=== PATIENT | female | born 1950 | race Caucasian/White ===

== ENCOUNTER → 2018-04-17 | Outpatient (CLI) | payer OTHER | END | disposition home or self-care (01) | LOC: SPEC 04-16 10:52 | DX: Z43.4 Encounter for attention to other artificial openings of digestive tract (principal) ==

== ENCOUNTER 2018-04-26 18:52 | Inpatient (IN) | payer OTHER ==
[~2018-04-26] VITALS: Ht 160 cm; Wt 59.1 kg
[2018-04-26] VITALS (8 sets, daily range): BP systolic 87–153; BP diastolic 50–80
--- NOTE | ~2018-04-26 | HC ---
[facility] [place] [address] CONSULTATION Name: LISA MAYFIELD Room #: 364-P ADM IN M.R.#: [id number] Admission: 04/26/18 Attend Phys: Selene Fischer Discharge: Date of : 54 Report #: [id number] THIS REPORT FOR: //name// CC: Usman Aponte DATE OF SERVICE: 04/27/2018 CONSULTATION: Infectious Diseases. HISTORY OF PRESENT ILLNESS: Ms Mayfield is a 67-year-old white female who was admitted to the hospital from [facility] on 04/26/2018 because of elevated temperature and deteriorating laboratory studies. The patient has been treated for a severe case of necrotizing pancreatitis with pseudocyst. She presented to [facility] about 4-6 weeks ago. She was treated medically. At [facility], she was on meropenem and vancomycin. After a long course of therapy, patient was improving and the antibiotics were discontinued. After about 2 or 3 days, the patient began to complain of more pain. She was noted to have elevated temperature. Laboratory studies showed elevated creatinine, falling hemoglobin and falling oxygen saturations. In this setting, the patient was returned to acute care at [facility]. The patient has a history of COPD and hypertension. Her surgical history includes hysterectomy and partial colectomy for what turned out to be benign disease, I believe. The patient has no history of pancreatitis prior to the above noted events. She has no history of alcohol. She has no history of gallstones. She has no history of trauma to the pancreas. MEDICATION RECONCILIATION: Current medications include pantoprazole 40 mg daily, Lactobacillus 1 cap daily, diltiazem long acting 180 mg daily, guaifenesin 600 mg b.i.d., trazodone 50 mg at bedtime, metoprolol 100 mg b.i.d., enoxaparin 30 mg subQ at bedtime, metoclopramide 5 mg q. 8h. scheduled, lactulose 20 g q. 6h. scheduled, albuterol 1.25 mg aerosol q. 4h., ondansetron 4 mg p.o. p.r.n., alprazolam 0.25 mg t.i.d., Tylenol 650 mg q. 6h. p.r.n., oxycodone 10 mg q. 4h. p.r.n., meropenem 500 mg q. 8h., DuoNeb inhaler 3 mL q. 4h., hydrocodone 1 tablet q. 4h. p.r.n., onetime dose of vancomycin. FAMILY HISTORY: Noncontributory. SOCIAL HISTORY: The patient is . She was living alone independently prior to the above noted events. She does have a history of tobacco, but quit smoking when she was admitted to the hospital and plans to remain abstinent from cigarettes. No history of alcohol nor drugs. REVIEW OF SYSTEMS: The patient is back in the hospital, n.p.o. with an NG tube, [address] [address] CONSULTATION Name: LISA MAYFIELD Room #: 364-P ADM IN M.R.#: [id number] Admission: 04/26/18 Attend Phys: Selene Fischer Discharge: Date of : 54 Report #: [id number] on antibiotics for 24 hours and says she feels pretty much back to what was her baseline at [facility]. She is not aware of fevers, chills or sweats. She is not complaining of any headache, sinus congestion, sore throat, trouble swallowing. Her mental status, which had deteriorated, was back to baseline. The patient denies cough, chest pain, shortness of breath. She does note nausea and diffuse upper abdominal pain. This was relieved with NG tube placement. The patient denies diarrhea or constipation. She denies urinary complaints. She has no pain in the extremities. PHYSICAL EXAMINATION: GENERAL: The patient appears comfortable, alert, oriented, not in any distress. VITAL SIGNS: Normal. The patient is afebrile. SKIN: Shows no rash, lesions, or exanthem. ENT: Negative. HEART: Sounds normal. LUNGS: Clear. ABDOMEN: Belly is soft, mild to moderately tender. Bowel sounds present. EXTREMITIES: Unremarkable. The PICC line appears unremarkable. LABORATORY DATA: White count is 12.7, hemoglobin is 10, hematocrit 30%, platelet 488,000. Electrolytes normal. BUN 41, creatinine 2.5. Chest x-ray: Negative. Pulmonary perfusion ventilation scan was low probability for pulmonary embolus. IMPRESSION: Necrotizing pancreatitis with pseudocyst, deteriorating when antibiotics were stopped. PLAN: We should check blood and urine for any sign of infection. The patient could have a PICC line infection. Most likely, this is a continuation of her pancreatitis disease. With the elevated creatinine, we will hold off on the vancomycin, but continue the meropenem. The patient seemed to have done better in the 24 hours after returning to the hospital on IV antibiotics. I appreciate the opportunity of input in the care of the patient. Dr. Ahn will return on Sunday. I believe he knows the patient from working with her at [facility] and can review the records there and continue appropriate therapy. Thank you for this consultation. <ELECTRONICALLY SIGNED> By: Armando Liu MD 04/28/18 2057 0905 1209 Armando Liu MD /nt
--- NOTE | ~2018-04-26 | HC ---
[facility] [place] [address] CONSULTATION Name: LISA ACUÑA Room #: 364-P [facility] IN M.R.#: [id number] Admission: 04/26/18 Attend Phys: Selene Fischer Discharge: 04/30/18 Date of : 54 Report #: [id number] THIS REPORT FOR: //name// CC: Usman Aponte DATE OF SERVICE: 04/29/2018 REASON FOR CONSULTATION: Pancreatitis with pseudocyst, altered mental status, hypoxia, acute renal insufficiency. HISTORY OF PRESENT ILLNESS: The patient is a 67-year-old who was transferred here from [facility] for evaluation. She apparently became less responsive. The patient has been ill for about a month. She was hospitalized at [facility] with severe pancreatitis, possible necrotizing pancreatitis. The exact source of her pancreatitis is not known, but she does not drink. Her sister has had her gallbladder removed. The patient came because of more abdominal pain located in the left upper quadrant area. The patient had altered mental status. She is brought back for further evaluation. On admission, her lipase was elevated at 1900. LABORATORY DATA: Her white count was 12,700. Her amylase was also elevated two days after admission. Her lipase did come down from 1900 to 1647. The patient had a CAT scan done today. The prior CT scan showed about a 5-cm size pseudocyst in the lateral portion near the tail. The gallbladder was also distended on her prior CT scan. Her most recent CT scan done yesterday, the fluid collection actually looks smaller down to about 2.5 cm. The gallbladder is no longer distended. There is a fair amount of fluid buildup on the left upper quadrant area. The CT was not done with contrast because of her elevated creatinine. So, the two CTs were difficult to compare. Her prior CT was done 04/17 with IV contrast. The patient does have some renal insufficiency. She says mostly her pain is on the left side. She is tolerating the Dobhoff well and she does not mind it. PHYSICAL EXAMINATION: GENERAL: She is alert and oriented now. She is a good historian. She is not in acute distress. She does have tenderness in the left abdomen with fullness. The lower abdomen is nontender. The right abdomen is mildly tender. IMPRESSION: The patient is a 67-year-old with pancreatitis. The pseudocyst actually looks smaller. I do not know if it ruptured or is it just absorbing on its own. There is significant inflammation and some free fluid in that area. Her lipase was elevated when she came in and it is trending downward. She may have had another activation of her pancreatitis. I did discuss with her possible placing a small jejunostomy tube, but she does not want anything [address] [address] CONSULTATION Name: LISA ACUÑA Room #: 364-P DIS IN M.R.#: [id number] Admission: 04/26/18 Attend Phys: Selene Fischer Discharge: 04/30/18 Date of : 54 Report #: [id number] permanent like that, she is comfortable with the nasojejunal feedings, which should be okay. I do not think that should stimulate the pancreas too much. At this point, I do not think she needs any surgical intervention. I do not think the pseudocyst needs to be drained since it is smaller. I do not see any significant collection that could be drained, but she does need to have repeat followup CT scans. Hopefully, her renal function will improve. By: [id number] [id number] Sonu Low MD /nt
--- NOTE | ~2018-04-26 | 2DMMODE ---
[place] [address] [employer] [place] [address] 2 D/M-MODE ECHOCARDIOGRAM Name: LISA ACUÑA Room #: 242-P ADM IN M.R.#: [id number] Admission: 04/26/18 Attend Phys: Usman Cevallos Discharge: Date of : 54 Date of Service: 04/27/18 1134 Report #: [id number] THIS REPORT FOR: //name// APPROVED REPORT Study performed: 04/27/2018 07:47:46 EXAM: Comprehensive 2D, Doppler, and color-flow Echocardiogram Patient Location: ICU Room #: 242 Status: on-call BSA: 1.61 HR: 115 bpm BP: 119/53 mmHg Rhythm: Tachycardia Other Information Study Quality: Adequate Technically limited study due to lung disease/patient did not tolerate exam well. Indications Hypoxemia. Hx: COPD 2D Dimensions RVDd: 30.38 mm LVEF(%): 58.92 (>50%) IVSd: 13.12 (7-11mm) LVOT Diam: 18.71 (18-24mm) LVDd: 42.78 mm PWd: 11.06 (7-11mm) LVDs: 29.54 (25-40mm) Aortic Root: 38.82 mm Davies's LVEF: 58.92 % Volumes Left Atrial Volume (Systole) Single Plane 4CH: 43.38 mL Single Plane 2CH: 55.26 mL Aortic Valve AoV Peak Brady.: 1.40 m/s AO Peak Gr.: 7.87 mmHg LVOT Max P.40 mmHg LVOT Max V: 1.05 m/s LOUIE Vmax: 2.05 cm2 Pulmonary Valve PV Peak Brady.: 1.55 m/s PV Peak Gr.: 9.60 mmHg [facility] [place] [address] [address] [place] [address] 2 D/M-MODE ECHOCARDIOGRAM Name: LISA ACUÑA LINDY Room #: [address] [place] [address] IN M.R.#: [id number] Admission: 04/26/18 Attend Phys: Usman Cevallos Discharge: Date of : 54 Date of Service: 04/27/18 1134 Report #: [id number] Tricuspid Valve RAP Estimate: 5.00 mmHg Left Ventricle The left ventricle is normal size. There is normal LV segmental wall motion. There is normal left ventricular wall thickness. Left ventricular systolic function is hyperdynamic. LVEF is 65-70%. This study is not technically sufficient to allow evaluation of the LV diastolic function. Right Ventricle The right ventricle is normal size. The right ventricular systolic function is normal. Atria The left atrium size is normal. The right atrium size is normal. Aortic Valve The aortic valve is sclerotic. No aortic regurgitation is present. There is no aortic valvular stenosis. Mitral Valve Mild mitral annular calcification. There is no mitral valve regurgitation noted. No evidence of mitral valve stenosis. Tricuspid Valve The tricuspid valve is normal in structure. There is no tricuspid valve regurgitation noted. Unable to assess PA pressure. Pulmonic Valve Pulmonic valve is not well visualized. Great Vessels Aortic root is mildly dilated. Ascending aorta is not well visualized. IVC is normal in size and collapses >50% with inspiration. Pericardium There is no pericardial effusion. Left pleural effusion noted. <Conclusion> Left ventricular systolic function is hyperdynamic. There is normal LV segmental wall motion. [facility] [address] [place] [address] 2 D/M-MODE ECHOCARDIOGRAM Name: LISA ACUÑA Room #: 242-P ADM IN M.R.#: [id number] Admission: 04/26/18 Attend Phys: Usman Cevallos Discharge: Date of : 54 Date of Service: 04/27/18 1134 Report #: [id number] LVEF is 65-70%. The aortic valve is sclerotic. No aortic regurgitation or stenosis Mild mitral annular calcification. No mitral valve regurgitation There is no pericardial effusion. <ELECTRONICALLY SIGNED> By: Parker Iniguez MD, [facility] 04/27/18 1134 1134 1134 Parker Iniguez MD, FACC /INF
--- NOTE | ~2018-04-26 | HC ---
[facility] [place] [address] CONSULTATION Name: LISA ACUÑA Room #: 364-P ADM IN M.R.#: [id number] Admission: 04/26/18 Attend Phys: Selene Fischer Discharge: Date of : 54 Report #: [id number] THIS REPORT FOR: //name// CC: Corbin Wagner MD REASON FOR CONSULTATION: The patient is a 67-year-old woman with increasing shortness of breath and history of necrotizing pancreatitis. HISTORY OF PRESENT ILLNESS: This 67-year-old woman reports she has no previous problems of pancreatic disease or biliary tract disease. She also reports she drinks alcohol very infrequently. She had a recent admission at [facility], I believe about March of this year at which time, she was found to have severe necrotizing pancreatitis. She subsequently developed pseudocyst and apparently had what was thought to be an infected pseudocyst. She was then taken to [facility] for rehabilitation. She also had a nasogastric tube placed for feedings. In addition, as an outpatient, she had a CT done 10 days ago and that study did reveal evidence of pancreatitis with numerous pseudocysts throughout the pancreas as well as a dominant extrahepatic pancreatic pseudocyst in left upper quadrant. There is also mild dilation in the intrahepatic and extrahepatic biliary tree without obvious filling defects. Largest pancreatic cyst in the tail measured 4.8 and the largest extrapancreatic pseudocyst measured 5.9. Obvious pancreatic necrosis was not seen. Portal vein was noted to be patent. The patient was transferred to [facility] due to hypoxia and confusion. She is currently in Intensive Care Unit and reports she is feeling much better today. A VQ scan done was low probability and chest x-ray showed cardiomegaly without evidence of heart failure. The patient also reports that after the placement of nasojejunal feeding tube, her abdominal pain did improve significantly. She has been able to take some clear liquids. LABORATORY STUDIES: Reveal a white count of 12.7, hemoglobin 10.2, platelet count of 422,000. Sodium 131, potassium 3.9, chloride 98, CO2 25, BUN of 41, creatinine of 2.5, AST 11, ALT of 10, alkaline phosphatase of 110. BNP of 1639. Albumin of 2.1 and lipase of 1952. PAST MEDICAL HISTORY: She has chronic obstructive pulmonary disease and was a former cigarette smoker, also has had chronic renal insufficiency. She has a left adrenal mass. PAST SURGICAL HISTORY: Previous hysterectomy, inguinal hernia repair what [facility] [address] [place] [address] CONSULTATION Name: LISA ACUÑA Room #: 364-P ADM IN M.R.#: [id number] Admission: 04/26/18 Attend Phys: Selene Fischer Discharge: Date of : 54 Report #: [id number] sounds like segmental colon resection for colonic polyps. ALLERGIES: MEPERIDINE. MEDICATIONS UPON TRANSFER: Include acetaminophen, albuterol nebulized, Xanax 0.25 mg 3 times daily, diltiazem 180 mg daily, Lovenox 30 mg subQ twice daily, Mucus Relief 600 mg twice daily, probiotic daily, lactulose 20 grams every 6 hours, meropenem 500 mg 3 times daily, metoclopramide 5 mg every 8 hours, metoprolol 100 mg twice daily, ondansetron 4 mg daily, OxyIR 10 mg every 4 hours as needed, pantoprazole 40 mg daily, trazodone 50 mg at bedtime. FAMILY HISTORY: No family history of pancreatic disease. SOCIAL HISTORY: She is a former cigarette smoker. She has never consumed much alcohol. REVIEW OF SYSTEMS: GENERAL: No change in weight, fever or chills. CENTRAL NERVOUS SYSTEM: No focal weakness, numbness, loss of consciousness, seizure or stroke. She was confused yesterday, is very much alert today. ENT: No change in vision or hearing or sores in the mouth. PULMONARY: Chronic obstructive pulmonary disease, former cigarette smoker. No history of pneumonia or tuberculosis. CARDIOVASCULAR: No chest pain, chest tightness or palpitation. GASTROINTESTINAL: No recent nausea, vomiting, hematemesis. She has had a colon surgery for multiple colon polyps. She said she has had at least [address] Ciro Denton. Last colonoscopy was about a year ago. GENITOURINARY: Left adrenal mass, chronic kidney disease. MUSCULOSKELETAL: No arthralgias or myalgias. SKIN: Without rash. PSYCHIATRIC: No depression, anxiety or bipolar illness. ENDOCRINE: No diabetes or thyroid problems. HEMATOLOGIC: No bleeding, bruising or malignancies. PHYSICAL EXAMINATION: GENERAL: Well-developed, well-nourished woman who is awake, alert and oriented, no acute distress. VITAL SIGNS: Blood pressure 139/69, pulse has been in the 90s, but this afternoon is 117. HEENT: Anicteric. Pupils equal and round. Oropharynx clear. NECK: Supple. CHEST: Clear. HEART: Regular rate and rhythm, normal S1, S2. ABDOMEN: There is some fullness in the upper abdomen. I do not appreciate distinct mass, but there is a definite fullness, which is indistinct. Bowel sounds are normal. There are no bruits. There is modest tenderness to [facility] [address] [place] [address] CONSULTATION Name: LISA ACUÑA Room #: 364-P ADM IN M.R.#: [id number] Admission: 04/26/18 Attend Phys: Selene Fischer Discharge: Date of : 54 Report #: [id number] palpation across the upper abdomen. No rebound or rigidity. RECTAL: Not done. EXTREMITIES: Without cyanosis, clubbing, edema. NEUROLOGIC: Oriented to person, place and time. Moves all 4 extremities well. ASSESSMENT: 1. Pancreatitis with history of necrotizing pancreatitis. 2. Pancreatic pseudocyst, multiple. 3. Abdominal pain. 4. Respiratory depression. 5. Altered mental status. COMMENT: Complicated medical history. All things considered, the patient is clinically improved today. I am not sure anything has changed in her abdomen. It is not clear why she had the respiratory issues and altered mental status. It is noted she is on multiple medications including narcotics and benzodiazepines, which may have been a factor. However, in the long-term, she has a large pseudocyst. She has multiple pseudocysts including large pseudocyst. The largest cyst may be amenable to endoscopic draining. She would need to be at another center for that procedure. However, I do not think there is an urgency to pursue at this point in time. RECOMMENDATIONS: 1. Agree with resuming tube feedings. 2. Monitor labs and lipase. 3. Pulmonary care per Dr. Aponte. 4. She will need a followup CT. Last one was about 10 days ago. She will need more CTs in the future questions whether to proceed now or wait. We will see how she does over the next 24 hours. 5. Continue antibiotics per Dr. Ahn. <ELECTRONICALLY SIGNED> By: Armando Hillman MD 04/29/18 1100 1303 1616 Armando Hillman MD /nt
--- NOTE | ~2018-04-26 | D ---
[facility] [place] [address] DISCHARGE SUMMARY Name: LISA ACUÑA Room #: 364-P [facility] IN M.R.#: [id number] Admission: 04/26/18 Attend Phys: Selene Fischer Discharge: 04/30/18 Date of : 54 Report #: [id number] THIS REPORT FOR: //name// CC: Usman Aponte FINAL DIAGNOSES: 1. Pancreatic pseudocyst. 2. Pancreatitis. 3. Hypoxia. HOSPITAL COURSE: The patient was admitted from LTAC for evaluation of her pancreatitis and to rule out sepsis. Her usual antibiotics were continued and was followed by the ID team. No new infections were identified and sepsis was ruled out. She was seen by the GI and Surgery services and at this point, they felt there was no intervention indicated nor surgery. CT revealed that the fluid collection and the pseudocyst was actually a little smaller, although there was a different technique. The recommendation is that she will need to follow up with her referring hospital for consideration of endoscopy treatment of the pseudocyst. She had no other interval complications. PHYSICAL EXAMINATION: GENERAL: On the day of discharge, she was awake and alert, sitting up in bed. VITAL SIGNS: Stable. LUNGS: Clear. HEART: Regular. ABDOMEN: Soft, but slightly distended, scattered bowel sounds. EXTREMITIES: No edema. DISPOSITION: To be transferred back to [facility], should continue clear liquid diet with continuous tube feeding. Current medications will continue including antibiotics, should be followed by Dr. Corbin Ahn. <ELECTRONICALLY SIGNED> By: Noah Galvin MD 05/01/18 1219 0958 1154 Noah Galvin MD /nt
--- NOTE | ~2018-04-26 | H ---
[facility] [place] [address] HISTORY AND PHYSICAL Name: LISA ACUÑA Room #: 242-P ADM IN M.R.#: [id number] Admission: 04/26/18 Attend Phys: Selene Fischer Discharge: Date of : 54 Report #: [id number] THIS REPORT FOR: //name// CC: Usman Aponte DATE OF SERVICE: 04/26/2018 CHIEF COMPLAINT: A 67-year-old female with pancreatitis. HISTORY OF PRESENT ILLNESS: This is a patient I have known now for the last month because she has been residing at the [facility] and had been doing much better overall, but had a diagnosis of pancreatitis that was not biliary or alcohol related and was significant necrotizing pancreatitis with subsequent formation of pseudocysts, and during her hospital stay, had some infection and we postulated that it was related to an infected pseudocyst. She finished the Merrem dosing and was much better; however, then began to have increasing sedation, hypoxemia, more abdominal pain, at which point we felt she needed further reevaluation of the pancreatitis and so, [facility] PAST MEDICAL HISTORY: Otherwise, unremarkable. She has COPD. She has mild renal insufficiency with a baseline creatinine of 1.3. She has a left adrenal mass. PAST SURGICAL HISTORY: She has had a previous hysterectomy. ALLERGIES: INCLUDE MEPERIDINE. MEDICATIONS: Well documented from the record. FAMILY HISTORY: Noncontributory. SOCIAL HISTORY: She has been at [facility] for the last 3-4 weeks. REVIEW OF SYSTEMS: Otherwise, negative. PHYSICAL EXAMINATION: GENERAL: Shows her to be in no distress at this time. She is awake, alert and oriented. She has a Dobbhoff tube in her right naris with O2 in place. CHEST: Clear with some scattered rhonchi. CARDIOVASCULAR: Shows a regular rate and rhythm without murmur. ABDOMEN: Tender in the mid epigastrium. Bowel sounds were present. EXTREMITIES: Showed no evidence of cyanosis, clubbing or edema and her PICC line was in the right upper arm and had a clean insertion site. [address] [address] HISTORY AND PHYSICAL Name: LISA ACUÑA Room #: 242-P ADM IN ..#: [id number] Admission: 04/26/18 Attend Phys: Selene Fischer Discharge: Date of : 54 Report #: [id number] NEUROLOGIC: Negative. LABORATORY PARAMETERS: Showed increasing creatinine now up to 2.5, and 2 days ago, it was 1.3. Her hemoglobin is 10 with 2 unit transfusion 2-3 days ago with a hemoglobin of 6. Chest x-ray shows left lower lobe atelectasis. ASSESSMENT: 1. This is a 67-year-old female with pancreatitis with pseudocyst formation and necrotizing in type, and I suspect further infectious complications. She also has atelectasis and could have a mild pneumonia as well. 2. Renal insufficiency, markedly increased. Hopefully, it will improve with fluid resuscitation. 3. Chronic obstructive pulmonary disease. 4. Hypertension. PLAN: IV Merrem. Await cultures. I think she probably needs total bowel rest and consider a surgically placed jejunostomy tube. By: 1019 1053 Usman Ahn MD /nt
--- NOTE | ~2018-04-26 | HC ---
[facility] [place] [address] CONSULTATION Name: LISA CAUÑA Room #: 364-P [facility] IN M.R.#: [id number] Admission: 04/26/18 Attend Phys: Selene Fischer Discharge: 04/30/18 Date of : 54 Report #: [id number] THIS REPORT FOR: //name// CC: Usman Aponte DATE OF SERVICE: 04/26/2018 REFERRING PROVIDER: Corbin Ahn MD REASON FOR CONSULTATION: Hypoxemia. CHIEF COMPLAINT: Altered mental status. HISTORY OF PRESENT ILLNESS: Our group was asked to see this patient in consultation while hospitalized at [facility]. I discussed with Dr. Maradiaga of the Emergency Department. Records that are available from [facility] long-term acute care facility reviewed. This is a 67-year-old woman with a past pulmonary history of COPD hospitalized in [facility] for about 1 month with a very severe case of pancreatitis. The exact details of that hospital stay are unclear, but had been on nasojejunal feedings and had been transferred to [facility] about one month ago and has had some difficulty with what appears to be a persistent left pleural effusion that is small to moderate in size, but today was found perhaps less responsive and hypoxemic, pO2 is 50 on several liters nasal cannula, was transferred to our Emergency Department and placed on high flow Venturi mask. In my evaluation at the bedside this evening after admission, the patient was very somnolent and arousable, but somewhat confused, thought she was at [facility], did recognize her son and friend who were at the bedside. The patient is undergoing a lower extremity venous Doppler at this time with ventilation perfusion scan pending. The patient noted to have a creatinine of 1.3 on 04/23, but now is 2.5 today. The patient also noted to have a two unit transfusion for hemoglobin of 7 also on 04/23. ALLERGIES: MEPERIDINE. PAST MEDICAL HISTORY: 1. COPD, severity not quantified. 2. Recent severe pancreatitis, etiology unclear. 3. Chronic renal insufficiency. 4. Left adrenal mass. OUTPATIENT MEDICATIONS: Current medications at [facility] include diltiazem 180 mg daily, enoxaparin 30 mg at bedtime., guaifenesin 600 mg twice daily, lactobacillus, Reglan 5 mg t.i.d., metoprolol 100 mg twice daily, Protonix [address] [address] CONSULTATION Name: LISA ACUÑA Room #: 364-P [facility] IN M.R.#: [id number] Admission: 04/26/18 Attend Phys: Selene Fischer Discharge: 04/30/18 Date of : 54 Report #: [id number] daily, DuoNebs p.r.n., lactulose p.r.n. constipation, morphine p.r.n. pain, oxycodone p.r.n. last administered at 1500 today. SOCIAL HISTORY: Currently nonsmoker and lives alone. FAMILY HISTORY: Unobtainable at this time due to confusion. REVIEW OF SYSTEMS: As described in the HPI mainly complains of abdominal pain; however, this is reportedly improved according to family. PHYSICAL EXAMINATION: VITAL SIGNS: Afebrile, pulse 100-110, respiratory rate 24 and blood pressure 143/80. GENERAL: This is an elderly woman, arousable, but very somnolent. ENT: Clear oropharynx. NECK: Supple and no lymphadenopathy. LUNGS: Diminished left base with decreased air movement. No wheezes appreciated, but diminished airflow. CARDIOVASCULAR: Heart was tachycardic, but regular. No murmurs appreciated. ABDOMEN: Distended with some epigastric tenderness to palpation and percussion. Bowel sounds are present. EXTREMITIES: Without edema and diminished pulses. LABORATORY DATA: There is no EKG to review. I did not see one in the system at all to review. Telemetry monitoring shows sinus tachycardia. Chest x-ray reveals nasoduodenal feeding tube. A small moderate left pleural effusion, associated atelectasis is present similar to previous findings on x-ray three days ago and on 04/17, nothing for pulmonary edema. Blood cultures are pending. White blood cell count 13,000, hemoglobin 10, hematocrit 31 and platelet count 422. Sodium 131, potassium 4.5, chloride 92, bicarbonate 28, BUN 43, creatinine 2.5 and glucose 130. ALT 10, AST 11 and total bilirubin 0.5. Lipase 1952. Albumin 2.1 and total protein 7.1. IMPRESSION: 1. Acute hypoxemic respiratory failure of unclear etiology. Radiographs are not changed. Some concern for venous thromboembolism. 2. Left pleural effusion appears chronic in nature, was present on prior films done here and apparently reported out on films done at [facility]. 3. Severe pancreatitis with pseudocysts, etiology unclear. 4. Uusjz-yz-lurnagc renal failure. SUGGESTIONS: 1. The patient may need more than current left upper extremity venous line, which appears to be a single lumen PICC or midline. However, I do not see it on her radiograph and cannot make any assumption that this is any kind of essential [facility] [address] [place] [address] CONSULTATION Name: LISA ACUÑA Room #: 364-P [facility] IN M.R.#: [id number] Admission: 04/26/18 Attend Phys: Selene Fischer Discharge: 04/30/18 Date of : 54 Report #: [id number] catheter or even a midline. 2. IV fluids. 3. Jacobo catheter to help monitor accurate in's and out's. 4. ICU transfer for continued monitoring. 5. Follow up arterial blood gas. 6. Minimize FiO2. 7. Bronchodilators. 8. Await ventilation perfusion scan, echo and lower extremity venous Doppler to assist with interpretation for possible pulmonary embolism. 9. Infectious Disease consult. 10. Consider Nephrology and/or Gastroenterology consultations. 11. Further recommendations to follow. Discussed with Dr. Maradiaga in the Emergency Department as well as nursing staff. Total critical care time 40 minutes to this point not including any procedures. <ELECTRONICALLY SIGNED> By: Jose Aponte MD 05/02/18 [id number] Jose Aponte MD /nt
[2018-04-26 19:42] LABS: HEMATOCRIT 30.5 % (37.0-47.0); HEMOGLOBIN 10.2 gm/dL (12.0-15.0); MCHC 33.6 g/dL (28.0-37.0); MCV 86.3 fL (80.0-100.0); PLATELET COUNT 422 thou/uL (150-400); RBC 3.54 mil/uL (4.20-5.00); RDW 16.1 % (10.5-14.5); WBC 12.7 thou/uL (4.0-11.0)
[2018-04-26 19:49] LABS: CALCIUM 9.3 mg/dL (8.5-10.1); CREATININE 2.5 mg/dL (0.6-1.0); POTASSIUM 4.5 mmol/L (3.5-5.1)
[2018-04-26 19:56] LABS: ALBUMIN 2.1 g/dL (3.4-5.0); DIRECT BILIRUBIN 0.1 mg/dL (<0.1-0.3); TOTAL BILIRUBIN 0.5 mg/dL (<0.1-1.0); TOTAL PROTEIN 7.1 g/dL (6.4-8.2)
[2018-04-26 20:03] LABS: ABSOLUTE NEUTROPHILS 10.8 thou/uL (1.4-8.2); ANISOCYTOSIS 1+; METAMYELOCYTES 1 %
[2018-04-26 22:46] LABS: URINE BILIRUBIN NEGATIVE (Negative); URINE BLOOD NEGATIVE (Negative); URINE CLARITY SL CLOUDY; URINE COLOR YELLOW; URINE GLUCOSE-RANDOM* NEGATIVE (Negative); URINE KETONES TRACE (Negative); URINE LEUKOCYTES-REFLEX NEGATIVE (Negative); URINE NITRITE-REFLEX NEGATIVE (Negative); URINE PROTEIN (DIPSTICK) 2+ (Negative); URINE UROBILINOGEN 0.2 E.U./dl (0.2-1.0)
[2018-04-26 22:55] LABS: AMORPHOUS URATES Few /LPF (None Seen); FINE GRANULAR CASTS 0-3 Few /LPF (None Seen); MUCUS 0-3 Light strn/LPF (None Seen); SQUAMOUS 0-3 Few /LPF (0-3); URINE RBC None Seen /HPF (0-2); URINE WBC-REFLEX None Seen /HPF (0-5)
[2018-04-26 22:56] LABS: BACTERIA-REFLEX None Seen /HPF (None Seen); CRYSTALS None Seen /LPF (None Seen)
[2018-04-26 23:30] LABS: HCO3 26.9 mmol/L (22.0-26.0); PCO2 48.6 mmHg (35.0-45.0); PO2 70.9 mmHg (80.0-100.0); pH 7.361 (7.360-7.450); sO2 93.5 % (92.0-98.0)
[2018-04-27] VITALS (38 sets, daily range): BP systolic 72–173; BP diastolic 47–90
[2018-04-27] MEDS ORDERED: CARDIZEM CD180 MG PO (08:09)
[2018-04-27] MEDS ORDERED: ENOXAPARIN30 MG/0.1 SUBQ (08:09)
[2018-04-27] MEDS ORDERED: MUCUS RELIEF600 M1 PO (08:10)
[2018-04-27] MEDS ORDERED: PROBIOTIC1 EAC1 PO (08:11)
[2018-04-27] MEDS ORDERED: LOPRESSOR100 M1 PO (08:12)
[2018-04-27] MEDS ORDERED: REGLAN 5 MG TAB5 MG PO (08:12)
[2018-04-27] MEDS ORDERED: PROTONIX40 M1 PO (08:13)
[2018-04-27] MEDS ORDERED: TYLENOL325 MG PO (08:13)
[2018-04-27] MEDS ORDERED: ACCUNEB SO1.25 MG/1 INH (08:15)
[2018-04-27] MEDS ORDERED: XANAX 0.25 MG0.25 MG PO (08:20)
[2018-04-27] MEDS ORDERED: ONDANSETRON HCL4 M2 PO (08:21)
[2018-04-27] MEDS ORDERED: LACTULOSE20 GM/30 M PO (08:21)
[2018-04-27] MEDS ORDERED: OXYCODONE HCL 55 MG PO (08:23)
[2018-04-27] MEDS ORDERED: MEROPENEM-500 MG/50 IVPB (08:24)
[2018-04-27] MEDS ORDERED: TRAZODONE HCL50 MG PO (08:24)
[2018-04-27 10:35] LABS: CREATININE 2.6 mg/dL (0.6-1.0); POTASSIUM 4.2 mmol/L (3.5-5.1)
[2018-04-27 11:49] LABS: CALCIUM 8.7 mg/dL (8.5-10.1); CREATININE 2.5 mg/dL (0.6-1.0); POTASSIUM 3.9 mmol/L (3.5-5.1)
[2018-04-28 00:05] VITALS: BP 103/61
[2018-04-28 03:30] VITALS: BP 131/70
[2018-04-28 06:21] LABS: CALCIUM 8.2 mg/dL (8.5-10.1); CREATININE 2.6 mg/dL (0.6-1.0); POTASSIUM 3.7 mmol/L (3.5-5.1)
[2018-04-28 08:06] VITALS: BP 155/79
[2018-04-28 12:04] VITALS: BP 136/58
[2018-04-28 15:58] VITALS: BP 123/59
[2018-04-28 19:45] VITALS: BP 147/74
[2018-04-29 04:30] VITALS: BP 162/78
[2018-04-29 05:56] LABS: HEMATOCRIT 24.6 % (37.0-47.0); MCH 29.1 pg (26.0-34.0); MCHC 33.4 g/dL (28.0-37.0); MCV 87.2 fL (80.0-100.0); RBC 2.82 mil/uL (4.20-5.00); RDW 16.3 % (10.5-14.5); WBC 10.8 thou/uL (4.0-11.0)
[2018-04-29 06:02] LABS: HEMOGLOBIN 8.2 gm/dL (12.0-15.0)
[2018-04-29 06:16] LABS: ALBUMIN 1.6 g/dL (3.4-5.0); CALCIUM 8.2 mg/dL (8.5-10.1); CREATININE 2.4 mg/dL (0.6-1.0); POTASSIUM 3.5 mmol/L (3.5-5.1); TOTAL BILIRUBIN 0.3 mg/dL (<0.1-1.0); TOTAL PROTEIN 6.1 g/dL (6.4-8.2)
[2018-04-29 07:50] VITALS: BP 192/98
[2018-04-29 12:04] VITALS: BP 187/91
[2018-04-29 16:43] VITALS: BP 168/97
[2018-04-29 20:15] VITALS: BP 165/78
[2018-04-30 03:56] VITALS: BP 168/73
[2018-04-30 06:58] VITALS: BP 177/100
[2018-04-30 10:54] VITALS: BP 157/81
== END 2018-04-30 18:08 | DRG 871 ==
LOC: ER 18:52 → 3W 20:15 → EROBS 20:15 → 3W 20:45 → ICU 22:39 → 3W 04-27 16:24
PROVIDERS: Emergency Medicine; Internal Medicine; Internal Medicine Pulmonary Disease; Specialist
PROC: 05HY33Z Insertion of Infusion Device into Upper Vein, Percutaneous Approach (ICD-10-PCS; principal; 2018-04-30)
PROC: B54MZZA Ultrasonography of Right Upper Extremity Veins, Guidance (ICD-10-PCS; principal; 2018-04-30)
DX: A41.9 Sepsis, unspecified organism (principal); K85.90 Acute pancreatitis without necrosis or infection, unspecified; J96.01 Acute respiratory failure with hypoxia; N17.9 Acute kidney failure, unspecified; K86.3 Pseudocyst of pancreas; R65.20 Severe sepsis without septic shock; J44.9 Chronic obstructive pulmonary disease, unspecified; N18.9 Chronic kidney disease, unspecified; Z79.899 Other long term (current) drug therapy; Z90.710 Acquired absence of both cervix and uterus; Z88.8 Allergy status to other drugs, medicaments and biological substances
CPT/HCPCS: 10078; 10879; 27000